=== PATIENT | male | born 1995 ===

== ENCOUNTER 2017-09-22 00:16 | Inpatient (IN) | payer BC, OTHER ==
[2017-09-22 01:18] LABS: ABS Basophils 0.1 10^3/ul (0-0.2); ABS Eosinophils 0.1 10^3/ul (0-0.6); ABS Lymphocytes 2.2 10^3/ul (1.0-4.8); ABS Monocytes 0.6 10^3/ul (0-0.8); ABS Neutrophils 6.4 10^3/ul (1.5-7.7); ABS Nucleated RBC 0 10^3/ul; Eosinophil % 1.6 % (0-6); Hematocrit 45 % (42-52); Hemoglobin 15.5 g/dl (14.0-18.0); Lymphocyte % 23.5 % (25-47); Mean Corpuscular HGB Conc 34 g/dl (31-36); Mean Corpuscular Hemoglobin 29 pg (27-31); Mean Corpuscular Volume 85 fL (80-94); Mean Platelet Volume 7 um3 (7.4-10.4); Nucleated Red Blood Cells % 0; Platelet Count 223 10^3/ul (150-450); Red Blood Count 5.33 10^6/ul (4.0-5.4); Red Cell Distribution Width 13 % (10.5-15); White Blood Count 9.4 10^3/ul (3.5-10.8)
[2017-09-22 01:19] LABS: Urine Appearance Clear; Urine Blood Negative (Negative); Urine Color Yellow; Urine Ketones 1+ (Negative); Urine Protein Negative (Negative); Urine Specific Gravity 1.025 (1.010-1.030); Urine Urobilinogen Negative (Negative)
[2017-09-22 01:33] LABS: EGFR Non-African American 114.9 (>60)
[2017-09-22] MEDS ORDERED: Al Hydrox/Mg Hydrox/Simet LIQ* 30 ML UDC PO PRN (03:33)
[2017-09-22] MEDS ORDERED: Acetaminophen TAB* 325 MG PO PRN (03:33)
[2017-09-22] MEDS ORDERED: diPHENhydraMINE PO* 50 MG PO PRN (03:34)
[2017-09-22] MEDS: Vitamin THERAPEUTIC TAB PO SCH (09:03)
[2017-09-22] MEDS: Citalopram TAB* 10 MG PO SCH (14:58)
--- NOTE | 2017-09-23 01:39 | HP ---
PSYCHIATRIC HISTORY AND PHYSICAL: DATE OF ADMISSION: 09/22/17 JUSTIFICATION FOR ADMISSION: The patient is in need of 24-hour supervision and treatment secondary to suicidal ideations with the plan to jump off a gorge. 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 Upon evaluation, the patient endorsed being depressed because he is homosexual and has developed significant romantic feelings towards a straight friend of his. Apparently, these feelings were not reciprocated and the friend felt uncomfortable around Khadar after these feelings were divulged. Around that time a month and a half ago, Khadar moved out of their mutual apartment and into a single apartment on his own. Since then, he has been feeling socially isolated, removed from his friends and his support network, and is experiencing significant depressed symptoms. He apparently left a note that he was suicidal and had been walking around the campus, looking at gorges and actually identified a place to jump and was standing there for a while, but chose not to at that time. He is not doing well at [employer] and apparently he is considering taking a medical leave of absence. When I meet with him, he is being visited by his father who is apparently supportive. The patient is screened for neurovegetative symptoms of depression and although he denies sleep disturbance or guilt or psychomotor retardation, he does endorse anhedonia, energy loss, poor concentration, decreased appetite, and suicidal thinking. He is apparently neglecting his classes and his homework , had been falling behind in school and is fearful for his academic history. PAST PSYCHIATRIC HISTORY: Psychiatric history is noncontributory. The patient has never received psychiatric therapy, medications, or hospitalization. He states that this is his first encounter with the mental health system. SUBSTANCE ABUSE HISTORY: Negative for alcohol, tobacco, or illicit drug abuse. PAST MEDICAL HISTORY: Noncontributory. PAST SURGICAL HISTORY: He has never had surgeries. MEDICATIONS: He is not on any medications. ALLERGIES: He has no known drug allergies. FAMILY HISTORY: He has a paternal grandfather who committed suicide in [place]. SOCIAL HISTORY: The patient was born and raised outside of [place] to an intact Swedish-Belizean family. He was in kindergarten when his mother of breast cancer and then was raised primarily by his father. Currently, he is a sophomore at [employer] ([employer] 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 He self identifies as homosexual, although not sexually active. He has no history of sexually transmitted diseases. He is neither church nor spiritual and he has no formal history of legal problems. REVIEW OF SYSTEMS: The patient denies headache or double vision. He denies sore throat, cough, chest pain, or difficulty breathing. He denies abdominal pain, nausea, vomiting, diarrhea, or constipation. He denies difficulty ambulating, enlarged lymph nodes, rashes, changes in weight, or fevers. PHYSICAL EXAMINATION VITAL SIGNS: Blood pressure 111/82, heart rate 53, respiratory rate 14, temperature 98.7, oxygen saturations are 95% on room air. HEENT: Head is normocephalic, atraumatic. NECK: Supple. CHEST: Clear to auscultation bilaterally. CARDIAC: Exam reveals normal heart sounds. ABDOMEN: Soft and nontender. MUSCULOSKELETAL: Exam reveals no sign of edema. NEUROLOGIC: He is grossly intact with no focal deficits. SKIN: Warm and dry. LABORATORY DATA: His complete blood count is within normal limits as is his complete metabolic panel. Urinalysis is within normal limits. Urine drug screen is negative for all substances tested, including alcohol. MENTAL STATUS EXAM: The patient is a slender male wearing eye glasses, a black T-shirt and very skinny jeans, who is calm, cooperative, somewhat shy. Speech is slow but fluent with excellent vocabulary. Mood is depressed with a constricted affect. Thought process is linear and goal directed. Thought content is significant for his desire to take a medical withdrawal from [employer]. He is endorsing suicidal thoughts, specifically to jump off one of the local gorges. He denies homicidal ideation. He denies auditory or visual hallucinations. Insight and judgment appear to be fair given his willingness to accept treatment on a voluntary basis. Cognitively, he is awake and alert with what would appear to be a high average intellect by virtue of his academic attainment and vocabulary. DIAGNOSES: [place] I: Major depressive disorder, single episode, severe without psychotic features. [place] II: Deferred. [place] III: None. [place] IV: Severe academic stressors. [place] V: At this time is 35. IMPRESSION: The patient is a 22-year-old, single, homosexual Swedish-Belizean [employer] sophomore in the information studies program, who was brought in by [place] police on a 9.41 legal status after he had sent a note to a friend, indicating he was suicidal. The patient now endorses suicidal thoughts stating that he was considering jumping off one of the local gorges following situation of unrequited romantic feelings towards heterosexual close friend of his. Since divulging his feelings, he has been ostracized to some extent by his network of friends and is now alone and isolative. He is also having significant academic stressors at [employer]. PLAN: The patient is admitted to the adult behavioral health unit where he is placed on q.15 minute checks for his own safety. We will likely be speaking with his father for further collateral information. We will also be contacting the [facility] Crisis Management Team to see if we can accommodate communication and working towards getting him a medical withdrawal. He is quite depressed and therefore, we will be starting a trial of citalopram 10 mg p.o. daily. If he tolerates this well, we can certainly bump it up to 20 mg prior to leaving. Since he is going to be returning to the [facility], his followup will likely be in that community. [id number]/[facility] #: [id number] ARTI
[2017-09-23] MEDS: Vitamin THERAPEUTIC TAB PO SCH (08:38)
[2017-09-23] MEDS: Citalopram TAB* 10 MG PO SCH (08:38)
--- NOTE | 2017-09-23 11:01 | PN ---
Subjective - Subjective Date of Service: 09/23/17 Service Type: 23524 Hosp care 15 min low complexity Subjective: Carson is tolerating citalopram well and denies side effects. He remains fixated on his unrequited romantic feelings about a male peer named Alphonso. He feels like going back home to [place] might be depressing and lonely but also thinks staying in Christmas would be the same if he drops out on a medical leave. He denies SI today. Objective - Appearance Appearance: Well Developed/Nourished Dysmorphic Features: No Hygiene: Normal Grooming: Well Kept - Behavior Psychomotor Activities: Normal Exhibits Abnormal Movement: No - Attitude and Relatedness Attitude and Relatedness: Cooperative Eye Contact: Good - Speech Quality: Unpressured Latencies: Normal Quantity: Appropriate - Mood Patient's Decription of Mood: "Sad" - Affect Observed Affect: Constricted Affect Consistent with: Dysphoria - Thought Process Patient's Thought Process: Coherent Thought Content: No Passive Wish, No Suicidal Planning, No Homicidal Ideation, No Paranoid Ideation - Sensorium Experiencing Hallucinations: No, Sensorium is Clear Type of Hallucinations: Visual: No, Auditory: No, Command: No - Level of Consciousness Level of Consciousness: Alert Orientation: Yes Intact, Yes Orientated to Time, Yes Orientated to Place, Yes Orientated to Person - Impulse Control Impulse Control: Intact - Insight and Judgement Insight and Judgement: Good - Group Participation Particating in Group Activities: Yes - Medication Management Medication Management Adherence: Yes Assessment - Assessment Merits Inpatient Hospitalization: For Immediate Safety, For Stabilization Inpatient DSM-V Dx: F32.2 Clinical Impression: 22 y.o. single, homosexual, [place] male [employer] sophomore in the Information Science department brought in by campus police on a 9.41 after writing a suicidal note to a male friend and considering jumping to his off a local gorge. Plan - Plan Treatment Plan: Name: CARSON KAUFMAN Birthdate: 1995 [id number] We have started a trial of citalopram 10mg daily and will increase this to 20mg tomorrow. [place] Crisis Management is involved and the patient is looking to pursue a medical withdrawal from the semester. Will require outpatient referrals in the [place] area. Continue inpatient-level services. Continued Medication Management: Start Medication Medications: Current Medications Acetaminophen (Tylenol Tab*) 650 mg PO Q4H PRN PRN Reason: PAIN or TEMP > 101 F Al Hydrox/Mg Hydrox/Simethicone (Maalox Plus*) 30 ml PO Q4H PRN PRN Reason: INDIGESTION Citalopram Hydrobromide (Celexa Tab*) 10 mg PO DAILY [facility] Last Admin: 09/23/17 08:38 Dose: 10 mg Diphenhydramine HCl (Benadryl Po*) 50 mg PO BEDTIME PRN PRN Reason: INSOMNIA Multivitamins (Theragran Tab*) 1 tab PO DAILY [facility] Last Admin: 09/23/17 08:38 Dose: 1 tab - Discharge Plan Discharge Plan: Inpatient Hospitalization
--- NOTE | 2017-09-23 16:38 | ED ---
Natalee Summers Emily, scribed for Grabiel Borja MD on 09/22/17 at 0045 . Psychiatric Complaint - HPI Summary HPI Summary: This patient is a 22 year old M BIBA to [facility] with a chief complaint of SI with plan that began 2 weeks ago. Pt does reports recent multiple stressors however will not reveal to provider at this time. Pt states he had plan of jumping off a bridge and left a note to his friend, who then called the police. Pt denies any previous SI or SA in the past. Pt denies any drug or alcohol abuse. - History Of Current Complaint Chief Complaint: EDMentalHealth Time Seen by Provider: 09/22/17 00:21 Hx Obtained From: Patient Onset/Duration: Sudden Onset, Lasting Weeks, Still Present Timing: Constant Severity Initially: Mild Severity Currently: Mild Aggravating Factor(s): Nothing Alleviating Factor(s): Nothing Has Suicidal: Reports: Thoughts, With A Plan - Allergies/Home Medications Allergies/Adverse Reactions: Allergies Allergy/AdvReac Type Severity Reaction Status Date / Time egg Allergy Mild See Comment Verified 09/22/17 00:31 nut - unspecified Allergy Mild See Comment Verified 09/22/17 00:29 shellfish derived Allergy Unknown Unknown Verified 09/22/17 00:30 Reaction Details Home Medications: Home Medications NK [No Home Medications Reported] 09/22/17 [History Confirmed 09/22/17] PMH/Surg Hx/FS Hx/Imm Hx Previously Healthy: Yes Opthamlomology History: Denies: Hx Legally Blind Psychiatric History: Denies: Hx Depression Infectious Disease History: No Infectious Disease History: Denies: Traveled Outside the US in Last 30 Days - Family History Known Family History: Positive: Unknown - Social History Occupation: Student Lives: Dormitory/Roommates Alcohol Use: None Hx Substance Use: No Substance Use Type: Reports: None Hx Tobacco Use: No Review of Systems Cardiovascular: Negative Respiratory: Negative Positive: Depressed, Other - Positive SI All Other Systems Reviewed And Are Negative: Yes Physical Exam - Summary Physical Exam Summary: Appearance: Well-appearing, no distress, Well-nourished Skin: Warm, color reflects adequate perfusion Head: Normal Head/Face inspection Eyes: Conjunctiva clear ENT: Normal inspection Neck: Supple, no nodes, no JVD. Respiratory: Lungs clear, Normal breath sounds, no respiratory distress Cardio: RRR, No murmur, pulses normal, brisk capillary refill Abdomen: soft, nontender, no guarding, no rebound Bowel sounds: present Musculoskeletal: Strength Intact/ ROM intact. No calf tenderness. No edema. Neuro: Alert, muscle tone normal, facial symmetry, speech normal, sensory/motor intact Psychological: Suicidal ideation. Judgement abnormal. Insight abnormal No HI. Triage Information Reviewed: Yes Vital Signs On Initial Exam: Initial Vitals Temp Pulse Resp BP Pulse Ox 100.4 F 109 18 142/90 99 09/22/17 00:21 09/22/17 00:21 09/22/17 00:21 09/22/17 00:21 09/22/17 00:21 Vital Signs Reviewed: Yes Diagnostics - Vital Signs Vital Signs Temp Pulse Resp BP Pulse Ox 09/22/17 00:21 100.4 F 109 18 142/90 99 - Laboratory Lab Results: Lab Results 09/22/17 09/22/17 09/22/17 Range/Units 01:00 01:00 01:00 WBC 9.4 (3.5-10.8) 10^3/ul RBC 5.33 (4.0-5.4) 10^6/ul Hgb 15.5 (14.0-18.0) g/dl Hct 45 (42-52) % MCV 85 (80-94) fL MCH 29 (27-31) pg MCHC 34 (31-36) g/dl RDW 13 (10.5-15) % Plt Count 223 (150-450) 10^3/ul MPV 7 L (7.4-10.4) um3 Neut % (Auto) 67.5 (38-83) % Lymph % (Auto) 23.5 L (25-47) % [place] % (Auto) 6.9 (0-7) % Eos % (Auto) 1.6 (0-6) % Baso % (Auto) 0.5 (0-2) % Absolute Neuts (auto) 6.4 (1.5-7.7) 10^3/ul Absolute Lymphs (auto) 2.2 (1.0-4.8) 10^3/ul Absolute Monos (auto) 0.6 (0-0.8) 10^3/ul Absolute Eos (auto) 0.1 (0-0.6) 10^3/ul Absolute Basos (auto) 0.1 (0-0.2) 10^3/ul Absolute Nucleated RBC 0 10^3/ul Nucleated RBC % 0 Sodium 137 (133-145) mmol/L Potassium 3.7 (3.5-5.0) mmol/L Chloride 103 (101-111) mmol/L Carbon Dioxide 26 (22-32) mmol/L Anion Gap 8 (2-11) mmol/L BUN 20 (6-24) mg/dL Creatinine 0.85 (0.67-1.17) mg/dL Est GFR ( Amer) 147.8 (>60) Est GFR (Non-Af Amer) 114.9 (>60) BUN/Creatinine Ratio 23.5 H (8-20) Glucose 95 (70-100) mg/dL Calcium 9.7 (8.6-10.3) mg/dL Total Bilirubin 0.60 (0.2-1.0) mg/dL AST 11 L (13-39) U/L ALT 9 (7-52) U/L Alkaline Phosphatase 80 (34-104) U/L Total Protein 7.1 (6.4-8.9) g/dL Albumin 4.9 (3.2-5.2) g/dL Globulin 2.2 (2-4) g/dL Albumin/Globulin Ratio 2.2 (1-3) Urine Color Urine Appearance Urine pH (5-9) Ur Specific [place] (1.010-1.030) Urine Protein (Negative) Urine Ketones (Negative) Urine Blood (Negative) Urine Nitrate (Negative) Urine Bilirubin (Negative) Urine Urobilinogen (Negative) Ur Leukocyte Esterase (Negative) Urine Glucose (Negative) Urine Ascorbic Acid (Negative) Urine Opiates Screen None detected (None Detect) Acetaminophen < 15 mcg/mL Ur Barbiturates Screen None detected (None Detect) Ur Phencyclidine Scrn None detected (None Detect) Ur Amphetamines Screen None detected (None Detect) U Benzodiazepines Scrn None detected (None Detect) Urine Cocaine Screen None detected (None Detect) U Cannabinoids Screen None detected (None Detect) Serum Alcohol < 10 (<10) mg/dL 09/22/17 Range/Units 01:00 WBC (3.5-10.8) 10^3/ul RBC (4.0-5.4) 10^6/ul Hgb (14.0-18.0) g/dl Hct (42-52) % MCV (80-94) fL MCH (27-31) pg MCHC (31-36) g/dl RDW (10.5-15) % Plt Count (150-450) 10^3/ul MPV (7.4-10.4) um3 Neut % (Auto) (38-83) % Lymph % (Auto) (25-47) % [place] % (Auto) (0-7) % Eos % (Auto) (0-6) % Baso % (Auto) (0-2) % Absolute Neuts (auto) (1.5-7.7) 10^3/ul Absolute Lymphs (auto) (1.0-4.8) 10^3/ul Absolute Monos (auto) (0-0.8) 10^3/ul Absolute Eos (auto) (0-0.6) 10^3/ul Absolute Basos (auto) (0-0.2) 10^3/ul Absolute Nucleated RBC 10^3/ul Nucleated RBC % Sodium (133-145) mmol/L Potassium (3.5-5.0) mmol/L Chloride (101-111) mmol/L Carbon Dioxide (22-32) mmol/L Anion Gap (2-11) mmol/L BUN (6-24) mg/dL Creatinine (0.67-1.17) mg/dL Est GFR ( Amer) (>60) Est GFR (Non-Af Amer) (>60) BUN/Creatinine Ratio (8-20) Glucose (70-100) mg/dL Calcium (8.6-10.3) mg/dL Total Bilirubin (0.2-1.0) mg/dL AST (13-39) U/L ALT (7-52) U/L Alkaline Phosphatase (34-104) U/L Total Protein (6.4-8.9) g/dL Albumin (3.2-5.2) g/dL Globulin (2-4) g/dL Albumin/Globulin Ratio (1-3) Urine Color Yellow Urine Appearance Clear Urine pH 6.0 (5-9) Ur Specific [place] 1.025 (1.010-1.030) Urine Protein Negative (Negative) Urine Ketones 1+ A (Negative) Urine Blood Negative (Negative) Urine Nitrate Negative (Negative) Urine Bilirubin Negative (Negative) Urine Urobilinogen Negative (Negative) Ur Leukocyte Esterase Negative (Negative) Urine Glucose Negative (Negative) Urine Ascorbic Acid * A (Negative) Urine Opiates Screen (None Detect) Acetaminophen mcg/mL Ur Barbiturates Screen (None Detect) Ur Phencyclidine Scrn (None Detect) Ur Amphetamines Screen (None Detect) U Benzodiazepines Scrn (None Detect) Urine Cocaine Screen (None Detect) U Cannabinoids Screen (None Detect) Serum Alcohol (<10) mg/dL Result Diagrams: 09/22/17 01:00 09/22/17 01:00 Lab Statement: Any lab studies that have been ordered have been reviewed, and results considered in the medical decision making process. Re-Evaluation - Re-Evaluation First Eval Re-Evaluation Time: 01:41 Comment: Pt resting comfortably in bed with no acute changes. Pt clear for psych evaluation. Course/Dx - Course Assessment/Plan: Pt seen and evaluated by Psych. Plan for admission for further Psych evaluation. - Differential Dx/Clinical Impression Differential Diagnosis/HQI/PQRI: Positive: Acute Psychosis, Bipolar Disorder, Depression, Suicide Attempt, Suicidal Ideation Provider Diagnosis: Depression, Suicidal ideation Discharge - Discharge Plan Condition: Stable Disposition: [place]ATR[place] [place] The documentation as recorded by the Natalee luis Emily accurately reflects the service I personally performed and the decisions made by , Grabiel Borja MD.
[2017-09-24] MEDS: Vitamin THERAPEUTIC TAB PO SCH (09:59)
[2017-09-24] MEDS: Citalopram TAB* 20 MG PO SCH (09:59)
--- NOTE | 2017-09-24 11:47 | PN ---
Subjective - Subjective Date of Service: 09/24/17 Service Type: 28135 Hosp care 15 min low complexity Subjective: Carson reports that he continued to harbor some thoughts of suicide over the first 2 days of admission but they are not present today. His thinking about what to do after discharge has changed a little in that he is now reluctant to pursue a medical leave. "I found out that I have until the end of the week to drop certain courses and there's one in particular that would be helpful to get rid of. The other ones I have C's in and can probably get caught up in over spring." The patient relates that his father's home in [place] is too isolated and he wouldn't have the same social opportunities as here in [place] at [employer]. His affect is slightly perkier today and I note that he is attending groups and socializing more. He is tolerating the citalopram well. Objective - Appearance Appearance: Thin Framed Dysmorphic Features: No Hygiene: Normal Grooming: Well Kept - Behavior Psychomotor Activities: Abnormal-Decreased Exhibits Abnormal Movement: No - Attitude and Relatedness Attitude and Relatedness: Cooperative Eye Contact: Fair - Speech Quality: Unpressured Latencies: Normal Quantity: Terse - Mood Patient's Decription of Mood: "Sad" - Affect Observed Affect: Constricted Affect Consistent with: Dysphoria - Thought Process Patient's Thought Process: Coherent Thought Content: No Passive Wish, No Suicidal Planning, No Homicidal Ideation, No Paranoid Ideation - Sensorium Experiencing Hallucinations: No, Sensorium is Clear Type of Hallucinations: Visual: No, Auditory: No, Command: No - Level of Consciousness Level of Consciousness: Alert Orientation: Yes Intact, Yes Orientated to Time, Yes Orientated to Place, Yes Orientated to Person - Impulse Control Impulse Control: Tenuous - Insight and Judgement Insight and Judgement: Fair - Group Participation Particating in Group Activities: Yes - Medication Management Medication Management Adherence: Yes Assessment - Assessment Merits Inpatient Hospitalization: For Immediate Safety, For Stabilization Inpatient DSM-V Dx: F32.2 Clinical Impression: 22 y.o. 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 Plan - Plan Treatment Plan: Name: CARSON KAUFMAN Birthdate: 1995 [id number] We have started a trial of citalopram 20mg daily and the patient is tolerating this well. [place] Crisis Management is involved and the patient is now looking to stay enrolled, drop a class or two and finish the semester. Will likely refer to [facility] mental health clinic. Continue inpatient-level services. Continued Medication Management: Start Medication Medications: Current Medications Acetaminophen (Tylenol Tab*) 650 mg PO Q4H PRN PRN Reason: PAIN or TEMP > 101 F Al Hydrox/Mg Hydrox/Simethicone (Maalox Plus*) 30 ml PO Q4H PRN PRN Reason: INDIGESTION Citalopram Hydrobromide (Celexa Tab*) 20 mg PO DAILY [facility] Last Admin: 09/24/17 09:59 Dose: 20 mg Diphenhydramine HCl (Benadryl Po*) 50 mg PO BEDTIME PRN PRN Reason: INSOMNIA Multivitamins (Theragran Tab*) 1 tab PO DAILY [facility] Last Admin: 09/24/17 09:59 Dose: 1 tab - Discharge Plan Discharge Plan: Inpatient Hospitalization
[2017-09-25] MEDS: Citalopram TAB* 20 MG PO SCH (08:54)
[2017-09-25] MEDS: Vitamin THERAPEUTIC TAB PO SCH (08:54)
--- NOTE | 2017-09-25 13:04 | PN ---
Subjective - Subjective Date of Service: 09/25/17 Service Type: 27700 Hosp care 15 min low complexity Subjective: Carson remains depressed but has not experienced SI since Saturday and would like to be discharged home. "I don't think I was ever in despair so much that I would have actually done anything to hurt myself. It was just a thought." He states that he has gotten enough from groups and milieu programming and feels like it would be in his best interest to return to campus. "I feel like I'm ready to work on other things, get back into school. I'm starting to feel like I'm wasting my time a little bit. I'm dropping my hardest class and I feel like I could pull all the others together over the spring." He is tolerating his antidepressant well and denies side effects. Father is seeking a family meeting. Objective - Appearance Appearance: Thin Framed Dysmorphic Features: No Hygiene: Normal Grooming: Well Kept - Behavior Psychomotor Activities: Normal Exhibits Abnormal Movement: No - Attitude and Relatedness Attitude and Relatedness: Cooperative Eye Contact: Good - Speech Quality: Unpressured Latencies: Normal Quantity: Appropriate - Mood Patient's Decription of Mood: "Okay" - Affect Observed Affect: Fair Affect Consistent with: Euthymia - Thought Process Patient's Thought Process: Coherent Thought Content: No Passive Wish, No Suicidal Planning, No Homicidal Ideation, No Paranoid Ideation - Sensorium Experiencing Hallucinations: No, Sensorium is Clear Type of Hallucinations: Visual: No, Auditory: No, Command: No - Level of Consciousness Level of Consciousness: Alert Orientation: Yes Intact, Yes Orientated to Time, Yes Orientated to Place, Yes Orientated to Person - Impulse Control Impulse Control: Tenuous - Insight and Judgement Insight and Judgement: Fair - Group Participation Particating in Group Activities: Yes - Medication Management Medication Management Adherence: Yes Assessment - Assessment Merits Inpatient Hospitalization: Consolidate Improvements, Pending Safe DC Plan Inpatient DSM-V Dx: F32.2 Clinical Impression: 22 y.o. 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 Plan - Plan Treatment Plan: Name: CARSON KAUFMAN Birthdate: 1995 [id number] We have started a trial of citalopram 20mg daily and the patient is tolerating this well. [facility] is involved and the patient is now looking to stay enrolled, drop a class or two and finish the semester. Will likely refer to [facility] mental health clinic. [facility] d/c for tomorrow, 09/26, if patient remains safe. Continued Medication Management: Start Medication Medications: Current Medications Acetaminophen (Tylenol Tab*) 650 mg PO Q4H PRN PRN Reason: PAIN or TEMP > 101 F Al Hydrox/Mg Hydrox/Simethicone (Maalox Plus*) 30 ml PO Q4H PRN PRN Reason: INDIGESTION Citalopram Hydrobromide (Celexa Tab*) 20 mg PO DAILY [facility] Last Admin: 09/25/17 08:54 Dose: 20 mg Diphenhydramine HCl (Benadryl Po*) 50 mg PO BEDTIME PRN PRN Reason: INSOMNIA Multivitamins (Theragran Tab*) 1 tab PO DAILY [facility] Last Admin: 09/25/17 08:54 Dose: 1 tab - Discharge Plan Discharge Plan: Outpatient Follow Up Outpatient Program: Counseling/Psych Services at [place]
[2017-09-26] MEDS: Citalopram TAB* 20 MG PO SCH (08:54)
[2017-09-26] MEDS: Vitamin THERAPEUTIC TAB PO SCH (08:54)
[2017-09-26 08:58] VITALS: BP 110/69
--- NOTE | 2017-09-26 15:46 | DS ---
DATE OF ADMISSION: 09/22/2017. DATE OF DISCHARGE: 09/26/2017. DISCHARGE DIAGNOSES: AXIS I: Major depressive disorder, single episode, severe without psychotic features. AXIS II: Deferred. AXIS III: None. AXIS IV: Severe, academic stressors. AXIS V: At the time of admission was 35 and at the time of discharge is 60. CONDITION AT THE TIME OF DISCHARGE: Improved. The patient appears to have a much brighter affect. He is eating 90 to 100 percent of his meals. He has been safe on all checks, attending groups and other milieu programming in an appropriate fashion. He has been more social with peers, interacting well with his father. The patient has agreed to a plan in which he will return to the [place] [employer], but has already dropped one of his most stressful courses. The patient has an upcoming week of spring break in which he plans on getting caught up with his other coursework. He is very much future oriented, indicating that he would like to join more clubs and organizations, and is looking forward to participating with the [employer] where he plays cello. His father has met with the treatment team and is agreeable with the discharge plan. The patient's intake at [facility] will be on the afternoon of discharge. He is tolerating his medications quite well and is appropriately requesting discharge to a less restrictive setting. MENTAL STATUS EXAM AT THE TIME OF DISCHARGE: The patient is a slender, male wearing eye glasses, a black T-shirt and very skinny jeans. He is calm and cooperative, somewhat shy. Speech is fluent with a normal rate, tone, and volume and an excellent vocabulary. Mood is euthymic with a full affect. Thought process is linear and goal directed. Thought content is significant for his desire to be discharged from the hospital. He is denying suicidal or homicidal ideations. He denies auditory or visual hallucinations. Insight and judgment are fair given his willingness to be treated on a voluntary basis. Cognitively, he is awake and alert with what would appear to be a high average intellect by virtue of his academic attainment and vocabulary. DISCHARGE INSTRUCTIONS TO THE PATIENT: A. Medication: He is taking Citalopram 20 mg p.o. daily. B. Diet: Regular. C. Activities: As tolerated. The patient is a nonsmoker. There are no laboratory or diagnostic studies pending at the time of discharge. D. follow-up care: The patient will follow-up with the [facility] mental health clinic for his intake which is scheduled for later this afternoon on . E. Substance abuse follow-up: Nonapplicable. 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 Upon evaluation, the patient endorsed being depressed because he is homosexual and has developed significant romantic feelings towards a straight friend of his. Apparently, these feelings were not reciprocated and the friend felt uncomfortable around Khadar after these feelings were divulged. Around that time a month and a half ago, Khadar moved out of their mutual apartment and into a single apartment of his own. Since then, he has been feeling socially isolated, removed from his friends, and his support network, and is experiencing significant depressed symptoms. He apparently left a note that he was suicidal and had been walking around the campus looking at gorges, and actually identified a place to jump and was standing there for a while, but chose not to do so at that time. He is not doing well at [employer] and apparently he is considering taking a medical leave of absence. When I met with him, he was being visited by his father who is apparently supportive. The patient screened for neurovegetative symptoms of depression and although he denies sleep disturbance, guilt, or psychomotor retardation, he does endorse anhedonia, energy loss, poor concentration, decreased appetite, and suicidal thinking. He is apparently neglecting his classes and his homework, and has been falling behind in school and is fearful for his academic future. HOSPITAL COURSE - PART B: Psychiatric treatment rendered: The patient was admitted to the Adult Behavioral Health Unit where he was placed on q.15 minute checks for his own safety. We felt that he met criteria for a clinic depression and therefore started him on a trial of Citalopram, initially at 10 mg daily, but bumped up to 20 mg daily. He tolerated this medicine quite well. Initially he was withdrawn, shy, and not particularly participatory in the milieu setting; however, as his treatment continued, he became more engaged, starting being spotted with peers, socializing more, and getting along better with his father. We had some discussions of him taking a medical leave of absence; however, it was felt that he would likely be more socially isolated at his father's home in the [facility] and therefore he decided to only drop one class. He is set to take advantage of the upcoming spring break by getting caught up with his remaining course work. He gradually became euthymic and was safe on all checks. We did confirm that the [facility] Police removed any ropes or nooses from his dorm building. He denies having any further means of self-harm and thoroughly denies suicidal ideations. His affect is greatly improved and we have given him resources for finding groups and other social activities to rebuild his social life. The patient has been cooperative and excellent to work with. He is appropriately requesting discharge and has done quite well on our unit. We feel that he would be better served in the less restrictive setting and are therefore discharging him back to the [facility]. We have met with his father on two occasions and he is agreeable with the discharge plan. [id number]/[facility] #: [id number] ARTI
== END 2017-09-26 12:20 | disposition home or self-care (01) | DRG 751 ==
LOC: ED 00:16 → BSU 02:30
PROVIDERS: ADMIT Psychiatry & Neurology Psychiatry; ATTEND Psychiatry & Neurology Psychiatry
DX: F32.2 Major depressive disorder, single episode, severe without psychotic features (principal); R45.851 Suicidal ideations; Z91.012 Allergy to eggs; Z91.018 Allergy to other foods; Z91.013 Allergy to seafood; Z81.8 Family history of other mental and behavioral disorders
CPT/HCPCS: 36415; 80053; 80061; 80307; 80320; 80329; 81003; 83036; 85025; 99222; 99231; 99238; 99284; A9270-GY; G0480